=== PATIENT | male | born 1995 | race Caucasian/White ===

== ENCOUNTER 2019-08-25 16:56 | Inpatient (IN) | payer MEDICAID ==
[~2019-08-25] VITALS: Ht 167.6 cm; Wt 46.7 kg
[~2019-08-25 16:56] MED LIST: ARIP10TA8 PO; HALO5TAB2 PO
[2019-08-25] MEDS ORDERED: ZOLPIDEM TARTRATE 10 MG TABLET PO PRN (19:30)
[2019-08-25 20:09] VITALS: BP 112/62
[2019-08-25 20:37] VITALS: BP 116/67
[2019-08-25] MEDS ORDERED: DIPH25CA85 PO ×2 (21:48)
[2019-08-25] MEDS ORDERED: HALO5TAB23 PO ×2 (21:48)
[2019-08-26 06:44] VITALS: BP 110/68
[2019-08-26 08:00] VITALS: BP 123/93
[2019-08-26] MEDS: ARIPiprazole 15 MG TABLET PO SCH (10:59)
[2019-08-26] MEDS: LORazepam 2 MG TABLET PO PRN (14:13)
[2019-08-26] MEDS ORDERED: MAGNESIUM HYDROXIDE SUSPENSION 30 ML UDCUP PO PRN (15:00)
[2019-08-26] MEDS ORDERED: CloNIDine HCL 0.1 MG TABLET PO PRN (15:00)
[2019-08-26] MEDS ORDERED: DOCUSATE SODIUM 100 MG CAPSULE PO PRN (15:00)
[2019-08-26] MEDS ORDERED: IBUPROFEN 400 MG TABLET PO PRN (15:00)
[2019-08-26] MEDS ORDERED: PETROLATUM,WHITE 28 GM JELLY TP PRN (15:00)
[2019-08-26] MEDS ORDERED: GuaiFENesin/D-METHORPHAN [SUGAR-FREE] 200-20MG/10 ML SYRUP UDCUP PO PRN (15:00)
[2019-08-26] MEDS ORDERED: MAG HYDROX/AL HYDROX/SIMETH ES 30 ML SUSPENSION UDCUP PO PRN (15:00)
[2019-08-26] MEDS ORDERED: ACETAMINOPHEN 325 MG TABLET PO PRN (15:00)
[2019-08-26] MEDS ORDERED: ONDANSETRON HCL 4 MG TABLET PO PRN (15:00)
[2019-08-26] MEDS ORDERED: ALBUTEROL SULFATE HFA 90 MCG/PUFF 8 GM INHALER IH PRN (15:00)
[2019-08-26] MEDS ORDERED: NICOTINE 14 MG/24 HOUR PATCH TD PRN (15:00)
[2019-08-26] MEDS ORDERED: LOPERAMIDE HCL 2 MG CAPSULE PO PRN (15:00)
[2019-08-26 16:14] VITALS: BP 131/79
[2019-08-27 06:35] VITALS: BP 103/66
[2019-08-27] MEDS: LORazepam 2 MG TABLET PO PRN ×3 (08:18→16:50)
[2019-08-27] MEDS: ARIPiprazole 15 MG TABLET PO SCH (08:18)
[2019-08-27 09:01] VITALS: BP 139/66
[2019-08-27 16:19] VITALS: BP 112/70
[2019-08-27] MEDS: HALOPERIDOL 5 MG TABLET PO PRN (16:50)
[2019-08-28 08:32] VITALS: BP 102/63
[2019-08-28] MEDS: LORazepam 2 MG TABLET PO PRN ×2 (08:38→16:39)
[2019-08-28] MEDS: ARIPiprazole 15 MG TABLET PO SCH (08:38)
[2019-08-28 16:09] VITALS: BP 111/64
[2019-08-28] MEDS: HALOPERIDOL 5 MG TABLET PO PRN (16:39)
[2019-08-29 06:16] VITALS: BP 121/72
[2019-08-29 08:00] VITALS: BP 116/76
[2019-08-29] MEDS: ARIPiprazole 15 MG TABLET PO SCH (08:39)
[2019-08-29] MEDS: LORazepam 2 MG TABLET PO PRN ×2 (08:51→16:52)
[2019-08-29] MEDS: HALOPERIDOL 5 MG TABLET PO PRN ×2 (10:59→16:52)
[2019-08-29 16:39] VITALS: BP 141/70
[2019-08-30 06:02] VITALS: BP 132/77
[2019-08-30] MEDS: ARIPiprazole 15 MG TABLET PO SCH (08:19)
[2019-08-30 08:25] VITALS: BP 132/65
[2019-08-30] MEDS: LORazepam 2 MG TABLET PO PRN ×2 (09:36→14:28)
[2019-08-30 16:01] VITALS: BP 136/66
[2019-08-30] MEDS: HALOPERIDOL 5 MG TABLET PO PRN (16:10)
[2019-08-31 06:50] VITALS: BP 135/66
[2019-08-31] MEDS: LORazepam 2 MG TABLET PO PRN ×2 (08:09→15:43)
[2019-08-31] MEDS: HALOPERIDOL 5 MG TABLET PO PRN ×2 (08:09→15:43)
[2019-08-31] MEDS: ARIPiprazole 15 MG TABLET PO SCH (08:09)
[2019-08-31 08:12] VITALS: BP 106/66
[2019-08-31 16:09] VITALS: BP 100/79
[2019-09-01 06:10] VITALS: BP 107/56
[2019-09-01] MEDS: LORazepam 2 MG TABLET PO PRN ×2 (07:09→13:12)
[2019-09-01 08:14] VITALS: BP 109/63
[2019-09-01] MEDS: ARIPiprazole 15 MG TABLET PO SCH (08:31)
[2019-09-01 16:17] VITALS: BP 119/67
[2019-09-02 05:45] VITALS: BP 103/56
[2019-09-02] MEDS: ARIPiprazole 15 MG TABLET PO SCH (08:10)
[2019-09-02] MEDS: LORazepam 2 MG TABLET PO PRN ×3 (08:10→19:09)
[2019-09-02] MEDS: HALOPERIDOL 5 MG TABLET PO PRN ×2 (10:23→19:09)
[2019-09-02 15:08] VITALS: BP 104/62
[2019-09-02 16:10] VITALS: BP 105/64
[2019-09-03 06:06] VITALS: BP 102/89
[2019-09-03 08:00] VITALS: BP 125/61
[2019-09-03] MEDS: LORazepam 2 MG TABLET PO PRN ×3 (08:26→16:33)
[2019-09-03] MEDS: ARIPiprazole 15 MG TABLET PO SCH (08:26)
[2019-09-03 16:00] VITALS: BP 114/80
[2019-09-03] MEDS: HALOPERIDOL 5 MG TABLET PO PRN (16:33)
[2019-09-04 02:40] VITALS: BP 110/79
[2019-09-04] MEDS: LORazepam 2 MG TABLET PO PRN (06:40)
[2019-09-04 08:00] VITALS: BP 126/68
[2019-09-04] MEDS: ARIPiprazole 15 MG TABLET PO SCH (08:24)
[2019-09-04] MEDS ORDERED: ARIP15TA2 PO (10:56)
== END 2019-09-04 12:45 | disposition left against medical advice (07) | DRG 750 ==
LOC: B3A 20:14
PROVIDERS: ADMIT Psychiatry & Neurology Psychiatry; ATTEND Psychiatry & Neurology Child & Adolescent Psychiatry
DX: F20.0 Paranoid schizophrenia (principal); Z91.14 Patient's other noncompliance with medication regimen; F10.10 Alcohol abuse, uncomplicated; F17.200 Nicotine dependence, unspecified, uncomplicated
CPT/HCPCS: 87081